=== PATIENT | female | born 1985 | race Two or more races ===

== ENCOUNTER 2020-12-24 05:32 | Inpatient (IN) | payer MEDICAID, SELFPAY ==
[2020-12-22 18:04] LABS: BASOPHILS % (AUTO) 0.2 % (0.0-2.0); EOSINOPHILS # (AUTO) 0.1 K/uL (0-0.4); EOSINOPHILS % (AUTO) 1.4 % (0.0-4.0); HEMOGLOBIN 11.8 g/dL (12.0-16.0); LYMPHOCYTES # (AUTO) 1.1 K/uL (2.5-16.5); LYMPHOCYTES % (AUTO) 16.4 % (20.5-51.1); MEAN CORPUSCULAR HEMOGLOBIN 32 pg (27-31); MEAN CORPUSCULAR HGB CONC 34 g/dL (33-37); MEAN CORPUSCULAR VOLUME 93.7 fL (80-94); MONOCYTES # (AUTO) 0.6 K/uL (0.8-1.0); MONOCYTES % (AUTO) 9.1 % (1.7-9.3); NEUTROPHILS # (AUTO) 4.9 K/uL (1.8-7.7); NEUTROPHILS % (AUTO) 72.9 % (42.2-75.2); PLATELET COUNT (AUTO) 188 K/uL (140-450); RED BLOOD CELL COUNT(AUTO) 3.74 MIL/uL (4.20-5.40); RED CELL DISTRIBUTION WIDTH 13.5 % (11.6-13.7); WHITE BLOOD COUNT (AUTO) 6.7 K/uL (4.8-10.8)
[2020-12-22 18:20] LABS: ALBUMIN 2.5 g/dL (3.4-5.0); ANION GAP 12.1 (8-16); CARBON DIOXIDE 24.4 mmol/L (21-32); CREATININE 1.6 mg/dL (0.6-1.3); POTASSIUM 4.5 mmol/L (3.5-5.1); TOTAL BILIRUBIN 0.2 mg/dL (0.0-1.0)
[~2020-12-24] VITALS: Ht 165.1 cm; Wt 95.3 kg
[2020-12-24] MEDS ORDERED: CITRIC ACID/SODIUM CITRATE 30 ML UDC PO SCH (06:00)
[2020-12-24] MEDS ORDERED: LACTATED RINGERS 1,000 ML IV SCH (06:00)
[2020-12-24] MEDS ORDERED: METHYLERGONOVINE 0.2 MG/ML AMP IM PRN (06:00)
[2020-12-24 06:59] LABS: APPEARANCE,URINE HAZY (CLEAR); BILIRUBIN,URINE NEGATIVE (NEGATIVE); BLOOD, URINE TRACE-I (NEGATIVE); COLOR,URINE YELLOW (YELLOW); LEUKOCYTE ESTERASE ,URINE TRACE (NEGATIVE); NITRITE, URINE NEGATIVE (NEGATIVE); PH,URINE 6.5 (5.0-9.0); UGLUCOSE NEGATIVE (NEGATIVE)
[2020-12-24 07:08] LABS: RBC,URINE 0-5 /HPF (0-5); WBC,URINE 0-5 /HPF (0-5)
[2020-12-24 07:15] VITALS: BP 126/87
[2020-12-24] MEDS ORDERED: fentaNYL citrate 0.05 MG/ML VIAL ONE (07:18)
[2020-12-24] MEDS ORDERED: MIDAZOLAM 2 MG/2 ML VIAL ONE (07:18)
[2020-12-24] MEDS ORDERED: MORPHINE PRES FREE 10 MG/10 ML AMP IV ONE (07:19)
[2020-12-24] MEDS ORDERED: SIMETHICONE 80 MG TAB.CHEW PO PRN (08:00)
[2020-12-24] MEDS ORDERED: oxyCODONE/APAP 5/325 MG 1 TAB TAB PO PRN ×3 (08:00→08:40)
[2020-12-24] MEDS ORDERED: TEMAZEPAM 15 MG CAP PO PRN (08:00)
[2020-12-24] MEDS ORDERED: ONDANSETRON 4 MG/2 ML VIAL IVP PRN ×2 (08:40)
[2020-12-24] MEDS ORDERED: NALOXONE 0.4 MG/ML VIAL IVP PRN ×2 (08:40)
[2020-12-24] MEDS ORDERED: MEPERIDINE 25 MG/ML SYR IVP PRN (08:40)
[2020-12-24] MEDS ORDERED: diphenhydrAMINE 50 MG/ML VIAL IVP PRN ×2 (08:40)
[2020-12-24] MEDS ORDERED: OXYTOCIN 20 UNITS in LACTATED RINGERS 1,000 ML IV SCH (08:40)
--- NOTE | 2020-12-24 08:52 | NUR ---
PATIENT HAS BEEN SCREENED AND CATEGORIZED LOW NUTRITION RISK. PATIENT WILL BE SEEN WITHIN 7 DAYS OF ADMISSION. 12/30/[address]
[2020-12-24] MEDS: OXYTOCIN 20 UNITS in LACTATED RINGERS 1,000 ML IV SCH ×2 (11:00→19:00)
[2020-12-24] MEDS: DOCUSATE SOD/SENNA 50/8.6 MG 1 TAB PO SCH (21:00)
[2020-12-24] MEDS: KETOROLAC 30 MG/ML VIAL IVP PRN (23:46)
[2020-12-25] MEDS ORDERED: OXYTOCIN 20 UNITS/LR PREMIX 1,000 ML IV ONE (02:20)
[2020-12-25] MEDS: OXYTOCIN 20 UNITS in LACTATED RINGERS 1,000 ML IV SCH (03:02)
[2020-12-25 05:41] LABS: BASOPHILS % (AUTO) 0.1 % (0.0-2.0); EOSINOPHILS % (AUTO) 0.4 % (0.0-4.0); HEMATOCRIT 31.5 % (36-48); HEMOGLOBIN 10.8 g/dL (12.0-16.0); LYMPHOCYTES # (AUTO) 1.1 K/uL (2.5-16.5); LYMPHOCYTES % (AUTO) 10.1 % (20.5-51.1); MEAN CORPUSCULAR HEMOGLOBIN 32 pg (27-31); MEAN CORPUSCULAR HGB CONC 34 g/dL (33-37); MEAN CORPUSCULAR VOLUME 92.5 fL (80-94); MONOCYTES # (AUTO) 0.8 K/uL (0.8-1.0); MONOCYTES % (AUTO) 7.5 % (1.7-9.3); NEUTROPHILS # (AUTO) 8.8 K/uL (1.8-7.7); NEUTROPHILS % (AUTO) 81.9 % (42.2-75.2); PLATELET COUNT (AUTO) 140 K/uL (140-450); RED BLOOD CELL COUNT(AUTO) 3.41 MIL/uL (4.20-5.40); RED CELL DISTRIBUTION WIDTH 13.3 % (11.6-13.7); WHITE BLOOD COUNT (AUTO) 10.8 K/uL (4.8-10.8)
[2020-12-25] MEDS: KETOROLAC 30 MG/ML VIAL IVP PRN (08:14)
[2020-12-25] MEDS ORDERED: CAMERA MC ONE (19:42)
[2020-12-25] MEDS: IBUPROFEN 800 MG TAB PO PRN (21:16)
[2020-12-25] MEDS: DOCUSATE SOD/SENNA 50/8.6 MG 1 TAB PO SCH (21:16)
[2020-12-26] MEDS ORDERED: FERR325E14 PO (07:57)
[2020-12-26] MEDS ORDERED: IBUP-2213 PO (07:58)
[2020-12-26] MEDS ORDERED: ACET-5629 PO (08:00)
[2020-12-26] MEDS: IBUPROFEN 800 MG TAB PO PRN (15:47)
== END 2020-12-26 19:03 | disposition home or self-care (01) | DRG 540 ==
LOC: MLD 05:32 → MFCC 09:58
PROVIDERS: ADMIT Obstetrics & Gynecology; ATTEND Obstetrics & Gynecology
PROC: 10D00Z1 Extraction of Products of Conception, Low, Open Approach (ICD-10-PCS; principal; 2020-12-24 07:30)
DX: O24.429 Gestational diabetes mellitus in childbirth, unspecified control (principal); O10.92 Unspecified pre-existing hypertension complicating childbirth; O34.211 Maternal care for low transverse scar from previous cesarean delivery; O32.1XX0 Maternal care for breech presentation, not applicable or unspecified; Z20.822 Contact with and (suspected) exposure to COVID-19; Z37.0 Single live birth; Z3A.38 38 weeks gestation of pregnancy
CPT/HCPCS: 36415; 51702; 80053; 81001; 85025; 86592; 86886; 86900; 86901; 87081; J0690; J1885; J2250; J2270; J2405; J2590; J3010; J7060; J7120; U0003

== ENCOUNTER 2023-02-14 12:55 | Inpatient (IN) | payer MEDICAID ==
[~2023-02-14] VITALS: Ht 157.5 cm; Wt 96.2 kg
[~2023-02-14 12:55] MED LIST: ACET-5629 PO; FERR325E14 PO; IBUP-2213 PO
[2023-02-14] MEDS ORDERED: LACTATED RINGERS 1,000 ML IV SCH (13:20)
[2023-02-14 13:35] VITALS: BP 150/101; PULSE 81; RESP 18; TEMP 98.8
[2023-02-14 13:45] LABS: BASOPHILS % (AUTO) 0.2 % (0.0-2.0); EOSINOPHILS # (AUTO) 0.1 K/uL (0-0.4); EOSINOPHILS % (AUTO) 1.1 % (0.0-4.0); HEMATOCRIT 31.2 % (36-48); HEMOGLOBIN 10.4 g/dL (12.0-16.0); LYMPHOCYTES # (AUTO) 1.4 K/uL (2.5-16.5); LYMPHOCYTES % (AUTO) 17.8 % (20.5-51.1); MEAN CORPUSCULAR HEMOGLOBIN 31 pg (27-31); MEAN CORPUSCULAR HGB CONC 34 g/dL (33-37); MEAN CORPUSCULAR VOLUME 91.3 fL (80-94); MONOCYTES # (AUTO) 0.5 K/uL (0.8-1.0); MONOCYTES % (AUTO) 6.6 % (1.7-9.3); NEUTROPHILS # (AUTO) 5.7 K/uL (1.8-7.7); NEUTROPHILS % (AUTO) 74.3 % (42.2-75.2); PLATELET COUNT (AUTO) 159 K/uL (140-450); RED BLOOD CELL COUNT(AUTO) 3.41 MIL/uL (4.20-5.40); RED CELL DISTRIBUTION WIDTH 12.6 % (11.6-13.7); WHITE BLOOD COUNT (AUTO) 7.6 K/uL (4.8-10.8)
[2023-02-14 13:47] LABS: APPEARANCE,URINE CLEAR (CLEAR); BILIRUBIN,URINE NEGATIVE (NEGATIVE); BLOOD, URINE TRACE-I (NEGATIVE); COLOR,URINE YELLOW (YELLOW); LEUKOCYTE ESTERASE ,URINE NEGATIVE (NEGATIVE); NITRITE, URINE NEGATIVE (NEGATIVE); PH,URINE 6.5 (5.0-9.0); UGLUCOSE NEGATIVE (NEGATIVE)
[2023-02-14 13:59] LABS: RBC,URINE 0-5 /HPF (0-5)
[2023-02-14 14:01] LABS: PROTHROMBIN TIME 9.2 secs (10.8-13.4)
[2023-02-14 14:03] LABS: ALBUMIN 2.7 g/dL (3.4-5.0); ANION GAP 14.8 (8-16); CARBON DIOXIDE 21.4 mmol/L (21-32); CREATININE 3.1 mg/dL (0.6-1.3); POTASSIUM 5.2 mmol/L (3.5-5.1); TOTAL BILIRUBIN 0.2 mg/dL (0.0-1.0)
[2023-02-14] MEDS ORDERED: hydrALAZINE 20 MG/ML VIAL ONE (14:24)
[2023-02-14] MEDS ORDERED: MAG SULF 2000 MG/WATER PREMIX 100 ML IV SCH (14:25)
[2023-02-14] MEDS ORDERED: hydrALAZINE 20 MG/ML VIAL IVP SCH (14:27)
[2023-02-14] MEDS ORDERED: ceFAZolin 2,000 MG VIAL ONE (15:07)
[2023-02-14] MEDS: MAG SULF 20 GM/H2O PREMIX DRIP 500 ML IV PRN (15:20)
--- NOTE | 2023-02-14 15:34 | NUR ---
PATIENT HAS BEEN SCREENED AND CATEGORIZED LOW NUTRITION RISK. PATIENT WILL BE SEEN WITHIN 7 DAYS OF ADMISSION. 02/21/[address]
[2023-02-14] MEDS ORDERED: MORPHINE PRES FREE 10 MG/10 ML AMP IV ONE (19:30)
[2023-02-14] MEDS ORDERED: oxyCODONE/APAP 5/325 MG 1 TAB TAB PO PRN ×2 (19:40)
[2023-02-14] MEDS ORDERED: SIMETHICONE 80 MG TAB.CHEW PO PRN (19:40)
[2023-02-14] MEDS ORDERED: OXYTOCIN 20 UNITS in LACTATED RINGERS 1,000 ML IV SCH ×2 (19:40→20:05)
[2023-02-14] MEDS ORDERED: KETOROLAC 30 MG/ML VIAL IVP PRN (19:40)
[2023-02-14] MEDS ORDERED: IBUPROFEN 800 MG TAB PO PRN (19:40)
[2023-02-14] MEDS ORDERED: TEMAZEPAM 15 MG CAP PO PRN (19:40)
[2023-02-14] MEDS ORDERED: ONDANSETRON 4 MG/2 ML VIAL IVP PRN (20:05)
[2023-02-14] MEDS ORDERED: NALOXONE 0.4 MG/ML VIAL IVP PRN ×3 (20:05)
[2023-02-14] MEDS ORDERED: MEPERIDINE 25 MG/ML SYR IVP PRN (20:05)
[2023-02-14] MEDS ORDERED: HYDROmorphone 1 MG/ML AMP IVP PRN (20:05)
[2023-02-14] MEDS ORDERED: NALBUPHINE 10 MG/ML AMP IVP PRN (20:05)
[2023-02-14] MEDS ORDERED: BLOOD GLUCOSE MONITORING 1 DEV DEV FS SCH (20:05)
[2023-02-14] MEDS ORDERED: diphenhydrAMINE 50 MG/ML VIAL IVP PRN ×2 (20:05)
[2023-02-14] MEDS ORDERED: DOCUSATE SOD/SENNA 50/8.6 MG 1 TAB PO SCH (21:00)
[2023-02-14] MEDS ORDERED: OXYTOCIN 20 UNITS/LR PREMIX 1,000 ML IV ONE (21:03)
[2023-02-14] MEDS: KETOROLAC 30 MG/ML VIAL IM/IVP SCH (22:22)
[2023-02-14] MEDS: ONDANSETRON 4 MG/2 ML VIAL IVP PRN (22:57)
[2023-02-15] MEDS: ONDANSETRON 4 MG/2 ML VIAL IVP PRN ×3 (03:19→10:58)
[2023-02-15] MEDS ORDERED: OXYTOCIN 20 UNITS/LR PREMIX 1,000 ML IV ONE ×2 (04:01→13:53)
[2023-02-15] MEDS: MAG SULF 20 GM/H2O PREMIX DRIP 500 ML IV PRN (04:08)
[2023-02-15] MEDS: KETOROLAC 30 MG/ML VIAL IM/IVP SCH ×2 (06:26→13:42)
[2023-02-15 06:50] LABS: BASOPHILS % (AUTO) 0.1 % (0.0-2.0); HEMATOCRIT 30.8 % (36-48); HEMOGLOBIN 10.2 g/dL (12.0-16.0); LYMPHOCYTES # (AUTO) 1.1 K/uL (2.5-16.5); LYMPHOCYTES % (AUTO) 8.1 % (20.5-51.1); MEAN CORPUSCULAR HEMOGLOBIN 30 pg (27-31); MEAN CORPUSCULAR HGB CONC 33 g/dL (33-37); MEAN CORPUSCULAR VOLUME 91.3 fL (80-94); MONOCYTES # (AUTO) 0.5 K/uL (0.8-1.0); MONOCYTES % (AUTO) 3.9 % (1.7-9.3); NEUTROPHILS % (AUTO) 87.9 % (42.2-75.2); PLATELET COUNT (AUTO) 136 K/uL (140-450); RED BLOOD CELL COUNT(AUTO) 3.37 MIL/uL (4.20-5.40); RED CELL DISTRIBUTION WIDTH 12.6 % (11.6-13.7); WHITE BLOOD COUNT (AUTO) 13.7 K/uL (4.8-10.8)
[2023-02-15] MEDS ORDERED: LABETALOL 200 MG TAB PO SCH (10:28)
[2023-02-15] MEDS ORDERED: LABETALOL 20 MG/4 ML VIAL IVP ONE (10:30)
[2023-02-15] MEDS ORDERED: hydrALAZINE 20 MG/ML VIAL IVP SCH (10:51)
[2023-02-15 10:57] VITALS: BP 159/88; PULSE 69
[2023-02-15] MEDS ORDERED: METOCLOPRAMIDE 10 MG/2 ML INJ VIAL IVP PRN (12:20)
[2023-02-15] MEDS ORDERED: METOCLOPRAMIDE 10 MG/2 ML INJ VIAL ONE (12:22)
[2023-02-15] MEDS ORDERED: LABETALOL 200 MG TAB ONE (18:19)
[2023-02-15] MEDS: LABETALOL 200 MG TAB PO SCH (18:21)
[2023-02-16] MEDS ORDERED: CAMERA MC ONE (03:07)
[2023-02-16] MEDS: LABETALOL 200 MG TAB PO SCH (09:12)
== END 2023-02-16 12:25 | disposition home or self-care (01) | DRG 539 ==
LOC: MLD 12:55 → MFCC 02-15 19:20
PROVIDERS: ADMIT Obstetrics & Gynecology; ATTEND Obstetrics & Gynecology
PROC: 10907ZC Drainage of Amniotic Fluid, Therapeutic from Products of Conception, Via Natural or Artificial Opening (ICD-10-PCS; 2023-02-14)
PROC: 0UB70ZZ Excision of Bilateral Fallopian Tubes, Open Approach (ICD-10-PCS; 2023-02-14)
PROC: 10D00Z1 Extraction of Products of Conception, Low, Open Approach (ICD-10-PCS; principal; 2023-02-14 16:30)
DX: O69.1XX0 Labor and delivery complicated by cord around neck, with compression, not applicable or unspecified (principal); O14.94 Unspecified pre-eclampsia, complicating childbirth; O24.429 Gestational diabetes mellitus in childbirth, unspecified control; O16.4 Unspecified maternal hypertension, complicating childbirth; Z20.822 Contact with and (suspected) exposure to COVID-19; O40.3XX0 Polyhydramnios, third trimester, not applicable or unspecified; Z3A.37 37 weeks gestation of pregnancy; Z37.0 Single live birth; Z88.7 Allergy status to serum and vaccine
CPT/HCPCS: 36415; 51702; 80053; 81001; 82948; 83735; 84550; 85025; 85610; 85730; 86592; 86886; 86900; 86901; J0360; J1200; J1885; J2270; J2405; J2590; J2765; J3475; J7120